=== PATIENT | female | born 1960 ===

== ENCOUNTER 2018-06-27 14:44 | Emergency (ER) | payer MEDICAID ==
[2018-06-27 14:44] VITALS: BMI 25.3
[2018-06-27 14:54] VITALS: RESP 16
--- NOTE | 2018-06-27 17:12 | ED PDOC ---
Lower Extremity Pain/Injury Time Seen by Provider: 06/27/18 15:17 Chief Complaint (Nursing): Lower Extremity Problem/Injury Chief Complaint (Provider): L foot pain History Per: Patient History/Exam Limitations: language barrier (niuean) Onset/Duration Of Symptoms: Days (5) Current Symptoms Are (Timing): Intermittent Episodes Severity: Mild Pain Scale Rating Of: 3 Legs Front+Back: 1 - pain Additional Complaint(s): 57 yo F with pmhx of htn, Renal cancer presents with 5 days of progressive L foot pain. She reports that the pain has been progressively worsened, especially with ambulation and worse at night. Pain is sharp in character. Alleviated with OTC meds and rest. She also reports history of L ankle surgery approximately 3 years ago. She denies recent trauma or falls. She is able to ambulate. Denies numbness, or decrease in sensation or movement of foot/toes. Surghx: R Nephrectomy 2016; L ankle 2015; R toe; bilateral tubal ligation, L oophorectomy Famhx: bladder cancer, htn, CAD SOC: Denies smoking, alcohol, illicit drugs Allergies to penicillin and tetracycline: vaginal pruritis and white discharge. PMD: Dr. Rosa at [facility]: Dr. Mancini at [facility] - Ankle/Foot Description Of Injury: Other (no injury; progressive discomfort) Alleviating Factor(s): Ice Therapy, Elevation, OTC Pain Medication Feet: 1 - plantar pain - Risk Factors DVT Risk Factors: Pos: None Past Medical History Vital Signs: Last Vital Signs Temp 97.0 F L 06/27/18 14:53 Pulse 88 06/27/18 14:53 Resp 16 06/27/18 14:53 BP 137/92 H 06/27/18 14:53 Pulse Ox 98 06/27/18 14:53 - Medical History PMH: Arthritis, Asthma, Bronchitis, HTN Denies: Chronic Kidney Disease Other PMH: REnal cancer s/p nephrectomy - Surgical History Other surgeries: Nephrectomy, oophorectomy, L ankle, bilateral tubal ligation, R toe - Family History Family History: States: Hypertension Other Family History: uterine cancer, - Living Arrangements Living Arrangements: With Family - Social History Current smoker - smoking cessation education provided: No Alcohol: None Drugs: Denies - Home Medications Home Medications: Ambulatory Orders Medication Instructions Recorded Aspirin 81 mg PO DAILY 11/23/14 Hydrochlorothiazide [HCTZ] 25 mg PO DAILY 11/23/14 Losartan [Cozaar] 100 mg PO DAILY 11/23/14 Omeprazole 40 mg PO DAILY 11/23/14 Osteo Bi-Flex 1 tab PO BID 11/23/14 Calcium Carbonate/Vitamin D 1 tab PO BID 02/05/15 [Caltrate 600+D 600 mg-200 Iu] Clindamycin Hydrochloride 300 mg PO Q6H #28 cap 02/06/15 [Clindamycin HCl] Enoxaparin [Lovenox] 40 mg SC DAILY #10 syr 02/06/15 Hydromorphone HCl [Dilaudid] 2 mg PO Q4 #20 tab 02/06/15 oxyCODONE/Acetaminophen [Percocet 1 tab PO Q4 #30 tab 02/06/15 5/325 mg Tab] Clindamycin [Cleocin] 300 mg PO TID #21 cap 02/11/15 - Allergies Allergies/Adverse Reactions: Allergies Allergy/AdvReac Type Severity Reaction Status Date / Time Penicillins Allergy RASH Verified 06/27/18 14:53 tetracycline Allergy RASH Verified 06/27/18 14:53 Wells Criteria for PE - Wells Criteria for Pulmonary Embolism Clinical Signs and Symptoms of DVT: No P.E is #1 Diagnosis, or Equally Likely: No Heart Rate >100: No Immobilization at least 3 days;Surgery previous 4 weeks: No Previous, objectively diagnosed PE or DVT: No Hemoptysis: No Malignancy w/treatment within 6 months, or palliative: No Total Score: 0 Review of Systems Musculoskeletal: Positive for: Foot Pain (L) Physical Exam - Reviewed Vital Signs Reviewed: Yes - Physical Exam Appears: Positive for: Well, Non-toxic, No Acute Distress Head Exam: Positive for: ATRAUMATIC Skin: Positive for: Normal Color, Warm, Dry Cardiovascular/Chest: Positive for: Regular Rate, Rhythm, Chest Non Tender. Negative for: Murmur Respiratory: Positive for: Normal Breath Sounds. Negative for: Accessory Muscle Use, Wheezing Gastrointestinal/Abdominal: Positive for: Normal Exam, Bowel Sounds, Soft. Negative for: Tenderness Extremity: Positive for: Normal ROM, Capillary Refill (less than 2 seconds), Swelling (non pitting), Other (negative for erythema of skin ). Negative for: Tenderness, Calf Tenderness Neurologic/Psych: Positive for: Alert, rn psychiatric II-XII, Oriented, Gait Front/Back of Body: 1 - pain at plantar and lateral - ECG O2 Sat by Pulse Oximetry: 98 - Progress ED Course And Treament: L foot pain at lateral aspect and plantar. Plan: X ray of L foot: no abnormalities no orthopedic hardware failure; read by radiologist DC home ER precautions reviewed with patient Pt to follow up with podiatry and pMD Case dw Dr. Wayne Roberts MD PGY2 Disposition - Clinical Impression Clinical Impression: Foot pain - Disposition Referrals: Podiatry Clinic [Outside] Disposition Time: 18:14 Condition: STABLE Additional Instructions: FOLLOW-UP WITH PMD WITHIN 2 DAYS FOR REEVALUATION. Instructions: Muscle and Bone Pain (DC) Forms: [employer] (Romansh) Print Language: VIETNAMESE
--- NOTE | 2018-06-27 17:56 | RAD ---
Date of service: 06/27/2018 PROCEDURE: Left Foot Radiographs. HISTORY: L foot pain at lateral and planar aspect. hx surg COMPARISON: 03/02/2017 FINDINGS: BONES: Postoperative findings related to triple arthrodesis. No evidence of orthopedic hardware failure. JOINTS: Normal. SOFT TISSUES: Normal. OTHER FINDINGS: None. IMPRESSION: No acute findings related to/accounting for the clinical presentation. No significant interval change compared to the prior examination(s).
[2018-06-27 18:02] VITALS: BP 134/85; PULSE 69; TEMP 98.5
[2018-06-27 18:17] VITALS: O2SAT 98
== END 2018-06-27 18:27 | disposition home or self-care (01) ==
LOC: H.ER 14:44
DX: M79.672 Pain in left foot (principal)